=== PATIENT | male | born 1995 | race Asian ===

== ENCOUNTER 2021-10-27 00:10 | Emergency (ER) | payer OTHER ==
[~2021-10-27] VITALS: Ht 177.8 cm; Wt 68.2 kg
[2021-10-27] MEDS ORDERED: ACETAMINOPHEN 325 MG TABLET PO ONE (01:00)
[2021-10-27 01:24] LABS: COVID AG,FIA SOURCE NASOPHARYNGEAL
[2021-10-27 01:42] LABS: INFLUENZA TYPE A NEGATIVE FOR TYPE A (NEGATIVE); INFLUENZA TYPE B NEGATIVE FOR TYPE B (NEGATIVE)
[2021-10-27 02:18] VITALS: BP 128/71
== END 2021-10-27 02:22 ==
LOC: EMS 00:13
DX: U07.1 COVID-19 (principal)
CPT/HCPCS: 87426; 87804; 99283; U0003